=== PATIENT | female | born 1990 | race African-American/Black ===

== ENCOUNTER 2017-08-25 20:28 | Emergency (ER) | payer OTHER | END 2017-08-25 20:55 | disposition home or self-care (01) | LOC: SCSER 20:28 | DX: G89.29 Other chronic pain (principal); M25.511 Pain in right shoulder; K02.9 Dental caries, unspecified; J45.909 Unspecified asthma, uncomplicated; F31.9 Bipolar disorder, unspecified | CPT/HCPCS: 99283 ==

== ENCOUNTER 2017-08-26 19:01 | Emergency (ER) | payer MEDICAID, OTHER | END 2017-08-26 20:25 | disposition home or self-care (01) | LOC: ERS 19:01 | DX: S46.911A Strain of unspecified muscle, fascia and tendon at shoulder and upper arm level, right arm, initial encounter (principal); J45.909 Unspecified asthma, uncomplicated; F31.9 Bipolar disorder, unspecified; X58.XXXA Exposure to other specified factors, initial encounter | CPT/HCPCS: 99283 ==